=== PATIENT | female | born 1985 | race Hispanic/Latino ===

== ENCOUNTER 2017-06-16 03:02 | Emergency (ER) | payer SELFPAY ==
[2017-06-16] MEDS ORDERED: Ibuprofen 800 MG TAB ONE (03:12)
== END 2017-06-16 04:18 | disposition home or self-care (01) ==
LOC: ERS 03:02
DX: H60.92 Unspecified otitis externa, left ear (principal); H66.92 Otitis media, unspecified, left ear
CPT/HCPCS: 99282